=== PATIENT | male | born 2000 | race Caucasian/White ===

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

== ENCOUNTER 2019-02-25 14:52 | Outpatient (CLI) | payer OTHER | END 2019-02-25 15:25 | disposition home or self-care (01) | LOC: ORTHO 14:52 | PROVIDERS: ATTEND Orthopaedic Surgery | DX: S92.422D Displaced fracture of distal phalanx of left great toe, subsequent encounter for fracture with routine healing (principal); S90.212D Contusion of left great toe with damage to nail, subsequent encounter; X58.XXXD Exposure to other specified factors, subsequent encounter | CPT/HCPCS: 73660; G0463 ==

== ENCOUNTER 2019-06-10 09:20 | Emergency (ER) | payer OTHER ==
[~2019-06-10] VITALS: Ht 177.8 cm; Wt 75.0 kg
[2019-06-10 09:24] VITALS: BP 115/71
[2019-06-10] MEDS ORDERED: ketorolac trometh inj. 60 MG/2 ML VIAL IM ONE (09:40)
== END 2019-06-10 10:31 | disposition home or self-care (01) ==
LOC: ER 09:21
DX: S29.012A Strain of muscle and tendon of back wall of thorax, initial encounter (principal); M54.5 Low back pain; X58.XXXA Exposure to other specified factors, initial encounter; Y93.89 Activity, other specified; Y92.89 Other specified places as the place of occurrence of the external cause; Y99.8 Other external cause status
CPT/HCPCS: 96372; 99283; J1885